=== PATIENT | male | born 1975 | race Caucasian/White ===

== ENCOUNTER → 2017-06-20 | Outpatient (CLI) | payer BC ==
[2017-06-20 11:08] LABS: ALT/SGPT 25 U/L (12-78); BLOOD UREA NITROGEN 15 mg/dl (7-18); CALCIUM 8.9 mg/dl (8.5-10.1); CARBON DIOXIDE 27 mmol/L (21-32); CHLORIDE 107 mmol/L (98-107); CHOLESTEROL 193 mg/dl (0-200); CREATININE 0.91 mg/dl (0.60-1.40); GLUCOSE 107 mg/dl (70-99); POTASSIUM 3.7 mmol/L (3.5-5.1); SODIUM 140 mmol/L (136-145); TRIGLYCERIDES 200 mg/dl (0-150); VERY LOW DENSITY LIPOPROT CALC 40 mg/dl
[2017-06-20 11:11] LABS: ALB/GLOB RATIO 1.1 (0.9-2); ALKALINE PHOSPHATASE 61 U/L (45-117); AST/SGOT 18 U/L (15-37); CHOLESTEROL/HDL RATIO 5.5; HDL CHOLESTEROL 35 mg/dl; LDL CHOLESTEROL CALCULATED 118 mg/dl
[2017-06-20 11:20] LABS: ESTIMATED AVERAGE GLUCOSE 100 mg/dl; HA1C FLAG Normal (Normal)
== END | disposition home or self-care (01) ==
LOC: C.LABBC 08:47
PROVIDERS: ATTEND Neuromusculoskeletal Medicine & OMM
DX: Z00.00 Encounter for general adult medical examination without abnormal findings (principal); E78.5 Hyperlipidemia, unspecified; R73.01 Impaired fasting glucose

== ENCOUNTER 2024-03-28 08:08 | Inpatient (IN) ==
--- NOTE | 2024-03-28 08:39 | Emergency Department Note ---
Impression & Plan Stroke ADMIT ED Provider Note HPI: History obtained from patient. The patient is a 48-year-old gentleman with history of dyslipidemia, presents the emergency department with chief complaint of acute onset dizziness, posterior headache, as well as nausea and vomiting. Patient states that his symptoms began earlier this morning at about 7 AM. Patient states his symptoms were relatively sudden in onset. Patient denies any chest pain or shortness of breath, denies any recent fever, denies any abdominal pain. On arrival here to the ED the patient does not have any focal deficits. He appears to be in some mild to moderate discomfort secondary to his nausea. Patient is otherwise alert and oriented and is able to provide me a coherent history. Patient is saturating well on room air on arrival. ROS: - Per HPI Differential Diagnosis: Peripheral vertigo, posterior circulation stroke, tension headache, migraine headache, subarachnoid hemorrhage, amongst other potential pathologies. *Outpatient medications and allergy history reviewed. PE: General: Alert HEENT: Normocephalic, trachea midline Eyes: Extraocular eye movement is intact, no scleral erythema Pulmonary: Clear to auscultation bilaterally, no wheezing Cardio: Regular rate and rhythm GI: Abdomen is soft to palpation : No suprapubic tenderness MSK: No evidence of trauma or malformation of the extremities, no edema Skin: No evidence of rash Neuro: Alert, no focal deficits, equal bilateral stewarding supervisor strength, no ataxia on [id number] testing bilaterally, symmetrical facial movements are appreciated, ambulates all 4 extremities spontaneously without issue Psychiatric: Cooperative INDEPENDENT INTERPRETATIONS: gambling monitor: (As interpreted by myself): - An order was placed for continuous cardiac monitoring - Patient was noted to be in sinus rhythm with a rate of 62 EKG: (As interpreted by myself): Rate: 60 Rhythm: Normal sinus rhythm Intervals: Within normal limits ST changes: No ST elevation Time: 0850 NIH STROKE SCALE: 1A: Level of consciousness Alert; keenly responsive 0 1B: Ask month and age Both questions right 0 1C: 'Blink eyes' & 'squeeze hands' Performs both tasks 0 2: Horizontal extraocular movements Normal 0 3: Visual grossman No visual loss 0 4: Facial palsy Normal symmetry 0 5A: Left arm motor drift No drift for 10 seconds 0 5B: Right arm motor drift No drift for 10 seconds 0 6A: Left leg motor drift No drift for 5 seconds 0 6B: Right leg motor drift No drift for 5 seconds 0 7: Limb Ataxia No ataxia 0 8: Sensation Normal; no sensory loss 0 9: Language/aphasia Normal; no aphasia 0 10: Dysarthria Normal 0 11: Extinction/inattention No abnormality 0 TOTAL NIH SCORE =0 Interventions provided in ED: -IV fluid bolus, IV Reglan, IV Benadryl, aspirin, Plavix, Lipitor Medical Decision Making: IV was established and lab work obtained, patient was placed on manager monitoring. Stroke alert was not initially activated as ischemic stroke was not considered to be the most likely diagnosis on presentation. Patient was taken for CT angiography of the head and neck that were read as unremarkable by the interpreting radiologist. Patient does not have any focal deficits on my exam. Patient was given IV Reglan and IV Benadryl as well as IV fluids for his headache. This did result in some improvement on my reevaluation following CT imaging at approximately 0940. Lab work shows a mild leukopenia at 4.71, hemoglobin is normal, platelet count is normal, CMP does not show any evidence of any critical findings. Troponin is negative. EKG per my interpretation shows normal sinus rhythm without any acute ischemic changes. On my reevaluation, patient was sleeping comfortably. I did ask the bedside nurse to ambulate the patient prior to potential discharge as there was high suspicion for possible peripheral vertigo. Patient was ambulated by the bedside RN had an episode of emesis. On my reassessment following this episode patient stated he again was feeling a sensation of dizziness and nausea. Given this, I did recommend we obtain an MRI image of the brain to rule out posterior circulation stroke and the patient was in agreement. MRI imaging of the brain was obtained and unfortunately does show evidence of small acute cerebellar infarcts. Following the results of MRI imaging I did discuss the patient's presentation with the on-call stroke neurologist at [facility], Dr. Tobias. At this time he recommends initiation of dual antiplatelet therapy as well as high-dose statin, permissive hypertension up to 200/100, and the patient can be admitted to the medicine service for secondary workup to ascertain the origin of the patient's stroke. I discussed this with the patient and his significant other at the bedside and they are in agreement to this plan. Patient remained without any focal deficits on my reassessment. His NIH stroke scale was noted to be 0. Case was then discussed with the on-call hospitalist, Dr. Leonard, and the patient was placed for admission in stable condition. Consultants/Discussions held with other healthcare providers: -Stroke Neurology, Dr. Tobias -Hospitalist, Dr. Leonard Disposition discussion held by myself with: -Patient Diagnosis: 1. Cerebellar stroke, acute 2. Nausea and vomiting, acute 3. Headache, acute, not intractable Disposition: Admission John Zhu DO Emergency Medicine Past Med/Surg History Problem List (Updated 03/28/24 @ 15:37 by John Zhu DO) Stroke (Acute) Hyperlipidemia Cerebellar stroke Leukopenia Dyslipidemia Impaired fasting glucose Medical History (Updated 03/28/24 @ 15:37 by John Zhu DO) Family history of malignant melanoma Family history of prostate cancer COVID Concussion JANUARY 2022>HIT THE HEAD WITH A DRILL>NO CURRENT PROBLEMS FROM EVENT Umbilical hernia Dermatitis Seasonal allergies Erectile dysfunction Allergic rhinitis Hx of prostatitis Acid reflux Migraine "VISUAL MIGRAINES" History of asthma A CHILD/NO INHALER Surgical History H/O umbilical hernia repair (06/10/22) Open Umbilical Hernia Repair (Not Applicable) - Jaspal Enciso DO H/O removal of cyst REMOVED FROM RIGHT SHOULDER>VERBALIZED HEALING PROBLEMS POST-OP WITH INTERNAL STITCH [place] teeth removed Family History Mother Ovarian cancer Alzheimer disease Father Prostate cancer Grandfather Prostate cancer Other Cancer No family history of adverse response to anesthesia Denies family history of Myocardial infarction Breast cancer Colorectal cancer Social History (Updated 01/28/24 @ 10:05 by Temitope Suh LPN) Smoking Status: Never smoker Second Hand Exposure: No ( A CHILD); Do You Dip or Chew Tobacco: No; Hx Alcohol Use: Yes Alcohol type: beer and hard liquor Alcohol Intake Frequency: 2-3 x/Week Hx Substance Use: No Preferred Language: Brazilian Communication Ability: Effective Visual Impairment: No Limitations Hearing Ability: Normal It Manager Required: No Beliefs That Will Affect Care: None marital status: Current Living Situation: Spouse current occupational status: employed 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 How many Children do You have: 2 Feels Safe at Home: Yes Childhood Exposure to Second-Hand Smoke: Yes Diet: regular caffeine: Yes during the past year weight has: decreased > 10 lbs Dental Care, Regularly: Yes Physical Activity Frequency: 3-4 Times per Week Seatbelt Use: always Sunscreen Use: Yes Assistive Devices: Contacts and Glasses Allergies Allergies Allergy/AdvReac Type Severity Reaction Status Date / Time INTERNAL STITCH Allergy Intermediate POOR Uncoded 01/28/24 10:00 HEALING Home Meds Home Medications Medication Instructions Recorded Confirmed hydrocortisone 2.5 % lotion 1 applic topical BID PRN . 05/08/22 03/28/24 B12 1 tab PO DAILY 03/28/24 03/28/24 cholecalciferol (vitamin D3) 1,250 50,000 unit PO WK 03/28/24 03/28/24 mcg (50,000 unit) capsule fenofibrate nanocrystallized 145 145 mg PO DAILY 03/28/24 03/28/24 mg tablet iron 1 tab PO WK 03/28/24 03/28/24 ketoconazole 2 % topical cream 1 applic topical BID PRN Other 03/28/24 03/28/24 Previous Rx's Medication Instructions Recorded ketoconazole 2 % shampoo 1 applic topical HS PRN seborrhea 06/15/23 #120 mL Results & Data (ED) Vital Signs Vital Signs - 24 hr 03/28/24 08:09 03/28/24 08:09 03/28/24 09:16 Pulse Rate 86 Pulse Rate [Apical] 75 Pulse Rhythm [Apical] Regular Pulse Strength [Apical] Normal Respiratory Rate 20 15 Respiratory Effort / Characteristics Non-Labored Spontaneous Non-Labored Respiratory Depth Normal Normal Respiratory Pattern Regular Blood Pressure 157/98 H Blood Pressure [Left Arm] 138/93 Blood Pressure Mean 117 Blood Pressure Mean [Left Arm] 108 Pulse Oximetry 98 97 Oxygen Delivery Method Room Air Room Air Room Air Sepsis Recent Fever Within 48 Hours No Sepsis New/Unexplained Change in Mental Status N/A Sepsis Action Taken by Nursing No Action Required 03/28/24 10:56 03/28/24 12:00 Pulse Rate 65 Pulse Rate [Apical] 61 Pulse Rhythm [Apical] Pulse Strength [Apical] Respiratory Rate 20 Respiratory Effort / Characteristics Respiratory Depth Respiratory Pattern Blood Pressure Blood Pressure [Left Arm] 124/92 Blood Pressure Mean Blood Pressure Mean [Left Arm] 102 Pulse Oximetry 96 Oxygen Delivery Method Room Air Sepsis Recent Fever Within 48 Hours Sepsis New/Unexplained Change in Mental Status Sepsis Action Taken by Nursing Laboratory Data 03/28/24 08:25 03/28/24 08:25 Lab Results 03/28/24 Range/Units 08:25 WBC 4.71 L (4.8-10.8) K/ul RBC 4.66 L (4.70-6.10) M/uL Hgb 14.3 (14.0-18.0) g/dl Hct 41.3 L (42.0-52.0) % MCV 88.6 (80.0-100.0) fL MCH 30.7 (25.0-34.0) pg MCHC 34.6 (32.0-36.0) g/dL RDW Std Deviation 40.8 (36.4-46.3) fL RDW Coeff of Georgina 12.5 (11.5-14.5) % Plt Count 255 (130-400) K/uL MPV 8.9 L (9.4-12.4) fL Immature Gran % (Auto) 0.4 % Neut % (Auto) 49.2 % Lymph % (Auto) 36.5 % Hamb[place] % (Auto) 10.0 % Eos % (Auto) 2.8 % Baso % (Auto) 1.1 % Neut # (Auto) 2.32 (1.40-6.50) K/uL Lymph # (Auto) 1.72 (1.20-3.40) K/uL Hamblen # (Auto) 0.47 (0.11-0.59) K/uL Eos # (Auto) 0.13 (0.00-0.50) K/uL Baso # (Auto) 0.05 (0.00-0.20) K/uL Immature Gran # (Auto) 0.02 (0.01-0.20) K/uL PT 10.9 (9.0-12.0) Seconds INR 1.0 (0.9-1.1) Sodium 140 (136-145) mmol/L Potassium 3.8 (3.5-5.1) mmol/L Chloride 106 (98-107) mmol/L Carbon Dioxide 24 (21-32) mmol/L Anion Gap 10 (3-11) BUN 14 (6-23) mg/dl Creatinine 0.90 (0.6-1.4) mg/dl Est Cr Clr Drug Dosing Not Reportable Est GFR ( Amer) 115.8 ml/min Est GFR (Non-Af Amer) 99.9 ml/min BUN/Creatinine Ratio 15.6 (10-20) Glucose 148 H (70-99(Fasting)) mg/dl Calcium 9.4 (8.6-10.3) mg/dl Total Bilirubin 0.4 (0.2-1.0) mg/dl AST 40 H (13-39) U/L ALT 31 (7-52) U/L Alkaline Phosphatase 31 L (34-104) U/L Troponin I High Sens < 2.3 (0-20) pg/ml Total Protein 7.4 (6.0-8.3) gm/dl Albumin 4.6 (3.4-5.0) gm/dl Globulin 2.8 (2.5-4.0) gm/dl Albumin/Globulin Ratio 1.6 (0.9-2) Administered Medications Discontinued Medications Aspirin (Aspirin Chew 324 Mg) 324 mg PO NOW STA Stop: 03/28/24 13:21 Last Admin: 03/28/24 14:20 Dose: 324 mg Documented By: SRL Clopidogrel Bisulfate (Clopidogrel Bisulfate 300 Mg Tab) 300 mg PO NOW STA Stop: 03/28/24 13:21 Last Admin: 03/28/24 14:20 Dose: 300 mg Documented By: SRL Diphenhydramine HCl (Diphenhydramine 50 Mg/Ml Vial) 25 mg IV NOW STA Stop: 03/28/24 08:37 Last Admin: 03/28/24 08:46 Dose: 25 mg Documented By: SRL Sodium Chloride (Nss) 1,000 mls @ 999 mls/hr IV .Q1H1M MARIA INES Stop: 03/28/24 09:45 Last Infusion: 03/28/24 09:38 Dose: Infused Documented By: Admin: 03/28/24 08:46 Dose: 999 mls/hr Documented By: SRL Ioversol (Optiray 320 125ml) 120 ml IV ONCE ONE Stop: 03/28/24 09:10 Last Admin: 03/28/24 09:09 Dose: 120 ml Documented By: KSF Metoclopramide HCl (Metoclopramide Hcl Inj 5 Mg/Ml 2 Ml Vial) 10 mg IV NOW STA Stop: 03/28/24 08:37 Last Admin: 03/28/24 08:46 Dose: 10 mg Documented By: CHERRY Ondansetron HCl (Ondansetron Inj 2 Mg/Ml 2 Ml Vial) 4 mg IV NOW STA Stop: 03/28/24 13:24 Last Admin: 03/28/24 14:20 Dose: 4 mg Documented By: SRL Imaging Data Radiologist's Impression: Neck CTA 03/28/24 08:35 NECK CTA HISTORY: dizzy, posterior headache TECHNIQUE: Multiaxial CT images of the neck were performed following the intravenous administration of contrast to evaluate the major cervical vessels. 3D/MIP images were also obtained. Sagittal and coronal reformats were reviewed. All measurements were calculated based on NASCET criteria. A dose lowering technique was utilized adhering to the principles of ALARA. COMPARISON STUDY: None. FINDINGS: The aortic arch and proximal great vessels are widely patent. There is no significant stenosis, occlusion, or dissection identified within the bilateral common carotid, internal carotid, or vertebral arteries. IMPRESSION: No significant stenosis, occlusion, or dissection identified within the carotid or vertebral arteries. ACT 112: Negative or not required by law. Electronically signed by: Blake Moreno M.D. 03/28/2024 9:34 AM Head CTA 03/28/24 08:36 CT ANGIOGRAM OF THE BRAIN COMBO CLINICAL HISTORY: Headache. COMPARISON STUDY: No priors. TECHNIQUE: Unenhanced axial CT scan of the brain is performed. Subsequently, following the IV administration of 120 cc of Optiray 320, CT angiogram of the brain was performed from the skull base to the vertex. Images are reviewed in the axial, sagittal, and coronal planes. 3-D MIPS images are created and assessed. IV contrast was administered without complication. A dose lowering technique was utilized adhering to the principles of ALARA. CT DOSE: 1220.22 mGy.cm FINDINGS: Brain parenchyma: The brain parenchyma is normal in appearance. There is no hemorrhage, mass effect, or evidence of acute territorial ischemia by CT criteria. There is no evidence of enhancing mass lesion on the angiogram phase images. No extra-axial fluid collection is seen. Noe-white matter differentiation is preserved. Ventricles, sulci, and cisterns: Normal in configuration. CT angiogram of the brain: The internal carotid arteries are widely patent, as are the anterior and middle cerebral arteries. The vertebrobasilar system and posterior cerebral arteries are widely patent. The vertebral arteries are codominant. There is no aneurysm, high-grade stenosis, or focal vessel cutoff identified throughout the intracranial circulation. Dural sinuses: Clear as visualized. Orbits: The bony orbits are intact. The orbital contents are normal as visualized. Sinuses and mastoids: The visualized paranasal sinuses are clear. The mastoid air cells are well pneumatized. Calvarium: Unremarkable. IMPRESSION: 1. No acute intracranial abnormality. 2. Unremarkable CT angiogram of the brain. ACT 112: Negative or not required by law. Electronically signed by: Roland Ortega M.D. 03/28/2024 9:22 AM Brain MRI 03/28/24 11:22 Brain MRI WITHOUT CONTRAST HISTORY: vertigo, vomiting TECHNIQUE: Multiplanar multisequence MRI of the brain was performed without the use of contrast. COMPARISON STUDY: Head CT 03/28/2024 FINDINGS: There is a 12 mm focus of restricted diffusion seen within the right side of the cerebellar vermis consistent with an acute infarct. There is a small linear focus of restricted diffusion within the left cerebellar hemisphere on image 9 also consistent with an acute lacunar infarct. The paranasal sinuses and mastoid air cells are clear. The major vascular flow-voids at the skull base are well-maintained. The ventricles and sulci are within normal limits. There is no mass, hematoma, midline shift. The orbits are unremarkable. The midline structures are intact. IMPRESSION: Small acute cerebellar infarcts as described above. ACT 112: Negative or not required by law. Electronically signed by: Blake Moreno M.D. 03/28/2024 12:59 PM Chest X-Ray 03/28/24 14:37 XR chest 1V portable CLINICAL HISTORY: Dyspnea. COMPARISON STUDY: No previous studies for comparison. FINDINGS: Lung volumes are normal. There is apparent hazy right infrahilar opacity. There is no pneumothorax or pleural effusion. Cardiac size is normal. Mediastinal contours are normal. There is no evidence for pulmonary edema. IMPRESSION: Apparent hazy right infrahilar opacity. This is likely artifactual however a focus of pneumonia could appear similar. Short-term follow-up PA and lateral chest radiographs are recommended to ensure resolution. ACT 112: Negative or not required by law. Electronically signed by: Gustavo Falcon M.D. 03/28/2024 3:25 PM Discharge Plan Visit Data Chief Complaint: Weakness Stated Complaint: WEAK, DIZZY, NAUSEA ED Provider: John Zhu Discharge Problem: Stroke Forms Stand Alone Forms: My [facility] [employer] Prescriptions Prescriptions: No Action ketoconazole 2 % shampoo 1 applic topical HS PRN (Reason: seborrhea) Qty: 120 5RF hydrocortisone 2.5 % Lotion 1 applic TOPICAL BID PRN (Reason: .) B12 1 tab PO DAILY Rx Instructions: unknown dose iron 1 tab PO WK Rx Instructions: unknown dose ketoconazole 2 % cream 1 applic topical BID PRN (Reason: Other) Rx Instructions: apply topically twice a day for 4 weeks or until response is noted fenofibrate nanocrystallized 145 mg tablet 145 mg PO DAILY Rx Instructions: TAKE 1 TABLET BY MOUTH EVERY DAY cholecalciferol (vitamin D3) 1,250 mcg (50,000 unit) capsule 50,000 unit PO WK Referrals Referrals: Erwin Portillo DO [Primary Care Provider] - Discharge Problem: Stroke Qualifiers: CVA mechanism: unspecified Qualified Code(s): I63.9 - Cerebral infarction, unspecified
[2024-03-28] MEDS: METOCLOPRAMIDE HCL INJ 5 MG/ML 2 ML VIAL IV STA (08:46)
[2024-03-28] MEDS: SODIUM CHLORIDE 0.9% 1,000 ML IV SCH (08:46)
[2024-03-28] MEDS: diphenhydrAMINE 50 MG/ML VIAL IV STA (08:46)
[2024-03-28 08:47] LABS: Basophils # (auto) 0.05 K/uL (0.00-0.20); Basophils % (auto) 1.1 %; Eosinophils # (auto) 0.13 K/uL (0.00-0.50); Eosinophils % (auto) 2.8 %; Hematocrit (blood only) 41.3 % (42.0-52.0); Hemoglobin 14.3 g/dl (14.0-18.0); Immature Granulocytes # (auto) 0.02 K/uL (0.01-0.20); Immature Granulocytes % (auto) 0.4 %; Lymphocytes # (auto) 1.72 K/uL (1.20-3.40); Lymphocytes % (auto) 36.5 %; Mean Corpuscular Hemoglobin 30.7 pg (25.0-34.0); Mean Corpuscular Hgb Conc 34.6 g/dL (32.0-36.0); Mean Corpuscular Volume 88.6 fL (80.0-100.0); Mean Platelet Volume 8.9 fL (9.4-12.4); Monocytes # (auto) 0.47 K/uL (0.11-0.59); Neutrophils # (auto) 2.32 K/uL (1.40-6.50); Neutrophils % (auto) 49.2 %; Platelet Count 255 K/uL (130-400); RDW Coefficient of Variation 12.5 % (11.5-14.5); RDW Standard Deviation 40.8 fL (36.4-46.3); Red Blood Count 4.66 M/uL (4.70-6.10); White Blood Count 4.71 K/ul (4.8-10.8)
[2024-03-28 09:05] LABS: Albumin Level 4.6 gm/dl (3.4-5.0); Anion Gap 10 (3-11); Bilirubin,Total 0.4 mg/dl (0.2-1.0); Calcium 9.4 mg/dl (8.6-10.3); Carbon Dioxide 24 mmol/L (21-32); Chloride 106 mmol/L (98-107); Potassium 3.8 mmol/L (3.5-5.1); Sodium 140 mmol/L (136-145)
[2024-03-28 09:08] LABS: Prothrombin Time 10.9 Seconds (9.0-12.0)
[2024-03-28 09:09] LABS: Troponin I High Sensitivity < 2.3 pg/ml (0-20)
[2024-03-28] MEDS: OPTIRAY 320 125ml IV ONE (09:09)
[2024-03-28 09:11] LABS: Alanine Aminotransferase 31 U/L (7-52); Albumin Globulin Ratio 1.6 (0.9-2); Alkaline Phosphatase 31 U/L (34-104); Aspartate Aminotransferase 40 U/L (13-39); BUN Creatinine Ratio 15.6 (10-20); Blood Urea Nitrogen 14 mg/dl (6-23); Est GFR (African American) 115.8 ml/min; Est GFR (Non-African American) 99.9 ml/min; Globulin 2.8 gm/dl (2.5-4.0); Glucose 148 mg/dl (70-99(Fasting)); Total Protein 7.4 gm/dl (6.0-8.3)
--- NOTE | 2024-03-28 09:24 | CT Scan Report ---
CT ANGIOGRAM OF THE BRAIN COMBO CLINICAL HISTORY: Headache. COMPARISON STUDY: No priors. TECHNIQUE: Unenhanced axial CT scan of the brain is performed. Subsequently, following the IV adminis tration of 120 cc of Optiray 320, CT angiogram of the brain was performed from the skull base to the vertex. Images are reviewed in the axial, sagittal, and coronal planes. 3-D MIPS images are created a nd assessed. IV contrast was administered without complication. A dose lowering technique was utiliz ed adhering to the principles of ALARA. CT DOSE: 1220.22 mGy.cm FINDINGS: Brain parenchyma: The brain parenchyma is normal in appearance. There is no hemorrhage, mass effect, or evidence of acute territorial ischemia by CT criteria. There is no evidence of enhancing mass lesi on on the angiogram phase images. No extra-axial fluid collection is seen. Noe-white matter differen tiation is preserved. Ventricles, sulci, and cisterns: Normal in configuration. CT angiogram of the brain: The internal carotid arteries are widely patent, as are the anterior and m iddle cerebral arteries. The vertebrobasilar system and posterior cerebral arteries are widely patent . The vertebral arteries are codominant. There is no aneurysm, high-grade stenosis, or focal vessel c utoff identified throughout the intracranial circulation. Dural sinuses: Clear as visualized. Orbits: The bony orbits are intact. The orbital contents are normal as visualized. Sinuses and mastoids: The visualized paranasal sinuses are clear. The mastoid air cells are well pneu matized. Calvarium: Unremarkable. IMPRESSION: 1. No acute intracranial abnormality. 2. Unremarkable CT angiogram of the brain. ACT 112: Negative or not required by law. Electronically signed by: Roland Ortega M.D. 03/28/2024 9:22 AM
--- NOTE | 2024-03-28 09:35 | CT Scan Report ---
NECK CTA HISTORY: dizzy, posterior headache TECHNIQUE: Multiaxial CT images of the neck were performed following the intravenous administration o f contrast to evaluate the major cervical vessels. 3D/MIP images were also obtained. Sagittal and cor onal reformats were reviewed. All measurements were calculated based on NASCET criteria. A dose low ering technique was utilized adhering to the principles of ALARA. COMPARISON STUDY: None. FINDINGS: The aortic arch and proximal great vessels are widely patent. There is no significant sten osis, occlusion, or dissection identified within the bilateral common carotid, internal carotid, or v ertebral arteries. IMPRESSION: No significant stenosis, occlusion, or dissection identified within the carotid or vertebral arteries . ACT 112: Negative or not required by law. Electronically signed by: Blake Moreno M.D. 03/28/2024 9:34 AM
--- NOTE | 2024-03-28 13:00 | Magnetic Resonance Report ---
Brain MRI WITHOUT CONTRAST HISTORY: vertigo, vomiting TECHNIQUE: Multiplanar multisequence MRI of the brain was performed without the use of contrast. COMPARISON STUDY: Head CT 03/28/2024 FINDINGS: There is a 12 mm focus of restricted diffusion seen within the right side of the cerebellar vermis consistent with an acute infarct. There is a small linear focus of restricted diffusion withi n the left cerebellar hemisphere on image 9 also consistent with an acute lacunar infarct. The parana tej sinuses and mastoid air cells are clear. The major vascular flow-voids at the skull base are well -maintained. The ventricles and sulci are within normal limits. There is no mass, hematoma, midline s hift. The orbits are unremarkable. The midline structures are intact. IMPRESSION: Small acute cerebellar infarcts as described above. ACT 112: Negative or not required by law. Electronically signed by: Blake Moreno M.D. 03/28/2024 12:59 PM
--- NOTE | 2024-03-28 14:07 | History & Physical Report ---
Date of Service March 28, 2024 Assessment & Plan (1) Cerebellar stroke: Plan: Bilateral cerebellar CVA 12 mm restricted diffusion at the right cerebellar vermis and left cerebellar lacunar infarcts CTAhead/neck without acute findings Was reviewed by [facility] telestroke. Recommended aspirin/Plavix, overnight monitoring with permissive hypertension x 24 hours. Goal parameters lowered to 200/100, patient is normotensive at bedside. Atorvastatin started. Thrombo lysis not recommended Will continue aspirin/Plavix for 3 weeks and then narrowed to aspirin versus Plavix monotherapy thereafter Echo pending Normal sinus rhythm on monitor, no evidence of A-fib Lipid/A1c pending Severe nausea related to stroke. Will continue multimodal nausea control including Zofran, Reglan, Compazine. Given lack of risk factors, young age, good blood pressure control prior to CVA hypercoagulation panel recommended. CRP, lupus anticoagulant, anticardiolipin, APC/factor V Leiden, antithrombin, B-glycoprotein, protein C/S, prothrombin, antiphospholipid markers added No history of IV drug use. Mild elevation of AST with no prior history of liver disease. Only needle exposure is via history of multiple tattoos; HCV is an independent risk factor for CVA --> Acute panel ordered Recent history of memory difficulties followed by PCP For metabolic screening showed vitamin D deficiency. B12, TSH, testosterone levels were normal; no evidence of DM A1c normal; no anemia; MCV normal. Continue outpatient follow-up. No evidence of chronic cerebral ischemia/multivessel intracranial disease to account for this CTA/MRI. (2) Impaired fasting glucose: Plan: Last A1c 5.6%, nondiabetic. Repeat pending (3) Hyperlipidemia: Plan: Previously adequately controlled on fenofibrate. Repeat lipids pending, high- dose statin ordered Plan DVT prophylaxis: SCDs, add Lovenox 03/29/2024 Diet: Heart healthy Disposition: PCU CODE STATUS: Full History of Present Illness Primary Care Provider: DO César Earlyhen is a 48-year-old male with a past medical history of impaired fasting glucose presented to the ER for sudden onset of posterior headache, dizziness, nausea, vomiting. Symptoms began abruptly at approximately 7 AM in the morning. He did not have any associated chest pain, dyspnea, ear pain, hearing loss, cough, or sinus congestion. STEMI seen at the bedside. He reports abruptly at approximately 730 he had a sudden change that is difficult to qualify in his hearing which was momentary before having the sudden onset of dizziness and nausea. Moving exacerbates his nausea and dizziness. Sometimes has a spinning quality. No weakness. No numbness or tingling. No headache. No visual change or visual aura. No similar symptoms in the past. No cough, congestion. No fevers or chills. Hx High cholesterol. On fenofibrate. Never on a statin. Denies other PMHx - BP normally good. Doesnt check at home, enver been high at dosctors visits - Father with CAD in 50s. - No history of strokes in the family - no numbness. No weakness, although felt poorly coordinated with his legs when this started - Feels slightly improved from earlier, ~50% better - No history of bleeding problems or issues - Works out, uses the [employer] few miles a few times per week with no limited chest pain/chest pressure - +sytolic murmur. Pt has no knownledge of prior murmur./ Medical History: Reviewed Medications: Reviewed Surgical History: Reviewed Family history: Reviewed Allergies: Reviewed Social History: No tobacco product. ETOH 'few days a week, 2-3 per day.' no hx withdrawal sx, can go several days without etoh and no sx. No history IVDU. Code Status: Full Allergies Allergy/AdvReac Type Severity Reaction Status Date / Time INTERNAL STITCH Allergy Intermediate POOR Uncoded 01/28/24 10:00 HEALING Home Medications Medication Instructions Recorded Confirmed Type hydrocortisone 2.5 % lotion 1 applic topical BID PRN . 05/08/22 03/28/24 History ketoconazole 2 % shampoo 1 applic topical HS PRN seborrhea 06/15/23 03/28/24 Rx #120 mL B12 1 tab PO DAILY 03/28/24 03/28/24 History cholecalciferol (vitamin D3) 1,250 50,000 unit PO WK 03/28/24 03/28/24 History mcg (50,000 unit) capsule fenofibrate nanocrystallized 145 145 mg PO DAILY 03/28/24 03/28/24 History mg tablet iron 1 tab PO WK 03/28/24 03/28/24 History ketoconazole 2 % topical cream 1 applic topical BID PRN Other 03/28/24 03/28/24 History Past Med/Surg History Problem List (Updated 03/28/24 @ 15:17 by Ashok Leonard MD) Hyperlipidemia Cerebellar stroke Leukopenia Dyslipidemia Impaired fasting glucose Medical History (Updated 03/28/24 @ 15:17 by Ashok Leonard MD) Family history of malignant melanoma Family history of prostate cancer COVID Concussion JANUARY 2022>HIT THE HEAD WITH A DRILL>NO CURRENT PROBLEMS FROM EVENT Umbilical hernia Dermatitis Seasonal allergies Erectile dysfunction Allergic rhinitis Hx of prostatitis Acid reflux Migraine "VISUAL MIGRAINES" History of asthma A CHILD/NO INHALER Surgical History H/O umbilical hernia repair (06/10/22) Open Umbilical Hernia Repair (Not Applicable) - Jaspal Enciso, H/O removal of cyst REMOVED FROM RIGHT SHOULDER>VERBALIZED HEALING PROBLEMS POST-OP WITH INTERNAL STITCH [place] teeth removed Family History Mother Ovarian cancer Alzheimer disease Father Prostate cancer Grandfather Prostate cancer Other Cancer No family history of adverse response to anesthesia Denies family history of Myocardial infarction Breast cancer Colorectal cancer Social History (Updated 01/28/24 @ 10:05 by Temitope Suh LPN) Smoking Status: Never smoker Second Hand Exposure: No ( A CHILD); Do You Dip or Chew Tobacco: No; Hx Alcohol Use: Yes Alcohol type: beer and hard liquor Alcohol Intake Frequency: 2-3 x/Week Hx Substance Use: No Preferred Language: Cymraes Communication Ability: Effective Visual Impairment: No Limitations Hearing Ability: Normal Roll On Man Required: No Beliefs That Will Affect Care: None marital status: Current Living Situation: Spouse current occupational status: employed 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 NAD. Cooperative. HEENT: Atraumatic, normocephalic. Pulm: CTAB A&P. -wheezes, -rales, -rhonchi. Symmetrical chest rise. No increased work of breathing. No respiratory distress. Cardiac: RRR, +sm. Radial pulses intact and symmetrical. Abdominal: Nontender, nondistended, soft. BS present. Multiple tattos. No history of IVDU CRANIAL NERVES: II: Pupils equal and reactive, no relative afferent pupillary defect, no VF cuts III, IV, : EOM intact, no gaze preference or deviation, no nystagmus. V: normal sensation in V1, V2, and V3 segments bilaterally VII: no asymmetry, no nasolabial fold flattening VIII: normal hearing to speech IX, X: normal palatal elevation, no uvular deviation XI: 5/5 head turn and 5/5 shoulder shrug bilaterally XII: midline tongue protrusion MOTOR: RUE: 5/5 Shoulder internal rotation, external rotation, flexion, extension, abduction, adduction 5/5 Elbow flexion/extension, wrist flexi on/extension 5/5 firer automatic stoker strength LUE: 5/5 Shoulder internal rotation, external rotation, flexion, extension, abduction, adduction 5/5 Elbow flexion/extension, wrist flexi on/extension 5/5 firer automatic stoker strength RLE: 5/5 to hip flexion knee flexion/extensio n, ankle dorsiflexion/plantarflexion LLE: 5/5 to hip flexion knee flexion/extensio n, ankle dorsiflexion/plantarflexion REFLEXES: no clonus SENSORY: Normal to touch, in upper and lower extremities without deficit or asymmetry COORD: Mild dysmetria of the LEFT hand on finger to nose with undershoot and increased tremor. RIGHT hand without evidence of dysmetria or tremor. Heel to miller normal bilaterally. Results & Data Results & Data Vital Signs (Past 12 Hours) Vital Signs Pulse Pulse Resp BP BP Pulse Ox O2 Del Method 03/28/24 12:00 61 20 124/92 96 Room Air 03/28/24 10:56 65 03/28/24 09:16 75 15 138/93 97 Room Air 03/28/24 08:09 Room Air 03/28/24 08:09 86 20 157/98 H 98 Room Air PG Care Time/CCT Total # of Minutes Spent Total Time Spent with Patient: Total time spent is greater than 50% in coordination of care (as documented) at patient's floor/unit and/or counseling patient: Coding Level of Care Code 17485 INT INP/OBS CARE 3/75MIN Diagnoses Cerebellar stroke I63.9 Impaired fasting glucose R73.01 Hyperlipidemia E78.5
[2024-03-28] MEDS: CLOPIDOGREL BISULFATE 300 MG TAB PO STA (14:20)
[2024-03-28] MEDS: ONDANSETRON INJ 2 MG/ML 2 ML VIAL IV STA (14:20)
[2024-03-28] MEDS: ASPIRIN CHEW 324 MG PO STA (14:20)
[2024-03-28] MEDS ORDERED: PROMETHAZINE HCL 25 MG/20 ML UDP PO PRN (15:21)
[2024-03-28] MEDS ORDERED: LORazepam 0.5 MG in SYRINGE 0.25 ML IV PRN (15:21)
--- NOTE | 2024-03-28 15:26 | XRay Report ---
XR chest 1V portable CLINICAL HISTORY: Dyspnea. COMPARISON STUDY: No previous studies for comparison. FINDINGS: Lung volumes are normal. There is apparent hazy right infrahilar opacity. There is no pneum othorax or pleural effusion. Cardiac size is normal. Mediastinal contours are normal. There is no radha dence for pulmonary edema. IMPRESSION: Apparent hazy right infrahilar opacity. This is likely artifactual however a focus of pn eumonia could appear similar. Short-term follow-up PA and lateral chest radiographs are recommended t o ensure resolution. ACT 112: Negative or not required by law. Electronically signed by: Gustavo Falcon M.D. 03/28/2024 3:25 PM
[2024-03-28] MEDS: ATORVASTATIN 40 MG TAB PO SCH (16:26)
--- NOTE | 2024-03-28 16:48 | Electrocardiogram Report ---
Test Reason : Blood Pressure : */* mmHG Vent. Rate : 60 BPM Atrial Rate : 60 BPM P-R Int : 190 ms QRS Dur : 100 ms QT Int : 410 ms P-R-T Axes : 51 24 43 degrees QTcB Int : 410 ms Poor data quality, interpretation may be adversely affected Normal sinus rhythm Normal ECG No previous ECGs available Confirmed by Marcelo Joseph ([id number]) on 03/28/2024 4:48:11 PM Referred By: REFERRED SELF Confirmed By: Marcelo Joseph
[2024-03-28 17:01] LABS: Hep B Surface Ag with confirm Negative (Negative)
[2024-03-28 17:06] LABS: Hep C Ab Rflx HepCQuant RNA Negative (Negative)
[2024-03-28] MEDS ORDERED: LABETALOL HCL IV 5 MG/ML 20ML IV PRN (19:10)
[2024-03-28] MEDS ORDERED: PHARMACIST DISCHARGE MED REC CONSULT PRN (19:10)
[2024-03-28] MEDS: ONDANSETRON INJ 2 MG/ML 2 ML VIAL IV PRN (22:02)
[2024-03-29 03:33] VITALS: TEMP 98.2
[2024-03-29 07:56] LABS: Basophils # (auto) 0.02 K/uL (0.00-0.20); Basophils % (auto) 0.3 %; Eosinophils # (auto) 0.03 K/uL (0.00-0.50); Eosinophils % (auto) 0.4 %; Hematocrit (blood only) 38.7 % (42.0-52.0); Hemoglobin 13.2 g/dl (14.0-18.0); Immature Granulocytes # (auto) 0.02 K/uL (0.01-0.20); Immature Granulocytes % (auto) 0.3 %; Lymphocytes # (auto) 1.29 K/uL (1.20-3.40); Lymphocytes % (auto) 18.8 %; Mean Corpuscular Hemoglobin 30.7 pg (25.0-34.0); Mean Corpuscular Hgb Conc 34.1 g/dL (32.0-36.0); Mean Platelet Volume 8.8 fL (9.4-12.4); Monocytes % (auto) 8.7 %; Neutrophils % (auto) 71.5 %; Platelet Count 218 K/uL (130-400); RDW Coefficient of Variation 12.7 % (11.5-14.5); RDW Standard Deviation 41.2 fL (36.4-46.3); White Blood Count 6.86 K/ul (4.8-10.8)
[2024-03-29 08:15] LABS: Anion Gap 5 (3-11); BUN Creatinine Ratio 11.7 (10-20); Blood Urea Nitrogen 12 mg/dl (6-23); C Reactive Protein < 0.50 mg/dl (0-0.5); Carbon Dioxide 30 mmol/L (21-32); Chloride 105 mmol/L (98-107); Chol HDL Ratio 4.4 (0-5); Cholesterol 159 mg/dl (0-200); Creatinine Clr Calc Pharmacy 106.7 ml/min; Est GFR (African American) 98.4 ml/min; Est GFR (Non-African American) 84.9 ml/min; Glucose 120 mg/dl (70-99(Fasting)); HDL Cholesterol 36 mg/dl; LDL Cholesterol Calculated 84 mg/dl; Potassium 3.6 mmol/L (3.5-5.1); Sodium 140 mmol/L (136-145); Triglycerides 194 mg/dl (0-150); VLDL Cholesterol 39 mg/dl (0-30)
[2024-03-29] MEDS: ASPIRIN 81 MG ECTAB PO SCH (08:56)
[2024-03-29] MEDS: CLOPIDOGREL BISULFATE 75 MG TAB PO SCH (08:56)
[2024-03-29] MEDS: FENOFIBRATE NANOCRYSTALLIZED 145 MG TABLET PO SCH (09:10)
[2024-03-29] MEDS ORDERED: Nursing to Pharmacy Communication SCH (09:15)
[2024-03-29 09:24] LABS: Estimated Average Glucose 114 mg/dl; Hemoglobin A1C 5.6 % (4.5-5.6)
--- NOTE | 2024-03-29 09:26 | XCELERA ---
[id number]
--- NOTE | 2024-03-29 10:11 | Pharmacy Report ---
- Date of Service March 29, 2024 - Pharmacy CVA/TIA Medication Review Medications to Prevent Stroke handout has been added to the patients discharge packet. Antiplatelet(s) * Aspirin 81 mg PO daily + clopidogrel 75 mg PO daily x 3 weeks, then monotherapy (to be determined) Cholesterol * High intensity statin: atorvastatin 80 mg daily DVT Prophylaxis * SCD knee Therapeutic Anticoagulation * No history of Afib/Aflutter noted Type 2 Diabetes * Patient does not have T2DM
[2024-03-29] MEDS: ACETAMINOPHEN 325 MG TAB PO PRN (10:43)
[2024-03-29 11:59] VITALS: BP 124/82; RESP 18; O2SAT 97
--- NOTE | 2024-03-29 14:41 | Discharge Summary ---
Date of Service March 29, 2024 Admission HPI Per Admitting Provider Kain is a 48-year-old male with a past medical history of impaired fasting glucose presented to the ER for sudden onset of posterior headache, dizziness, nausea, vomiting. Symptoms began abruptly at approximately 7 AM in the morning. He did not have any associated chest pain, dyspnea, ear pain, hearing loss, cough, or sinus congestion. seen at the bedside. He reports abruptly at approximately 730 he had a sudden change that is difficult to qualify in his hearing which was momentary before having the sudden onset of dizziness and nausea. Moving exacerbates his nausea and dizziness. Sometimes has a spinning quality. No weakness. No numbness or tingling. No headache. No visual change or visual aura. No similar symptoms in the past. No cough, congestion. No fevers or chills. Hx High cholesterol. On fenofibrate. Never on a statin. Denies other PMHx - BP normally good. Doesnt check at home, enver been high at dosctors visits - Father with CAD in 50s. - No history of strokes in the family - no numbness. No weakness, although felt poorly coordinated with his legs when this started - Feels slightly improved from earlier, ~50% better - No history of bleeding problems or issues - Works out, uses the [employer] ra few miles a few times per week with no limited chest pain/chest pressure - +sytolic murmur. Pt has no knownledge of prior murmur./ Medical History: Reviewed Medications: Reviewed Surgical History: Reviewed Family history: Reviewed Allergies: Reviewed Social History: No tobacco product. ETOH 'few days a week, 2-3 per day.' no hx withdrawal sx, can go several days without etoh and no sx. No history IVDU. Code Status: Full Discharge Data Consultations 03/28/24 13:27 ED Decision to Admit Stat Hospital Course (1) Cerebellar stroke: 48-year-old male with a past medical history of mild hyperlipidemia, and no history of hypertension/diabetes/prior stroke/tobacco use who presented with acute onset of difficulty with balance. Was initially evaluated in the ER for vertigo, due to severity of symptoms underwent an MRI which showed a 12 mm right cerebellar vermis stroke, and left cerebellar lacunar infarct. CTA of the head and neck were normal, no PICA occlusion was seen. Case was reviewed by [facility] telestroke who recommended permissive hypertension for 24 hours and dual antiplatelet for at least 3 weeks. Risk of hypertension goal parameters were lowered to 200/100; patient remains normotensive without any antihypertensives. Echo showed a PFO. This was reviewed w/ Dr. Douglas on-call neurology. It was recommended for dual antiplatelet therapy as noted, and outpatient cardiology follow-up. Referrals for cardiology and neurology were placed. On admission due to relative lack of risk factors and young age extended panel including hypercoagulable workup was sent, hepatitis panel was included due to history of multiple tattoos. No leg pain/calf pain/swelling suspicious for DVT. He has no history of IVDU. Nausea improved and nearly completely resolved with Zofran at time of discharge. Dizziness had greatly improved and was able to ambulate independently, outpatient PT was recommended on formal assessment. To Do As Outpatient: 1. Continue DAPT with aspirin Plavix for at least 3 weeks 2. Continue atorvastatin 40 mg daily 3. Follow-up hypercoagulable and hepatitis labs including lupus anticoagulant, anticardiolipin, factor V Leiden, Antithrombin, beta glycoprotein, protein C/S. If positive consider switching to full regimen to include anticoagulation 4. Follow-up with cardiology for PFO, and neurology for cerebellar strokes 5. Outpatient PT, prescription was provided Bilateral cerebellar CVA 12 mm restricted diffusion at the right cerebellar vermis and left cerebellar lacunar infarcts CTAhead/neck without acute findings Was reviewed by [facility] telestroke. Recommended aspirin/Plavix, overnight monitoring with permissive hypertension x 24 hours. Goal parameters lowered to 200/100, patient is normotensive at bedside. Atorvastatin started. Thrombolysis not recommended Will continue aspirin/Plavix for 3 weeks and then narrowed to aspirin versus Plavix monotherapy thereafter Echo pending Normal sinus rhythm on monitor, no evidence of A-fib Lipid/A1c pending Severe nausea related to stroke. This improved with Zofran Given lack of risk factors, young age, good blood pressure control prior to CVA hypercoagulation panel recommended. CRP, lupus anticoagulant, anticardiolipin, APC/factor V Leiden, antithrombin, B-glycoprotein, protein C/S, prothrombin, antiphospholipid markers added No history of IV drug use. Mild elevation of AST with no prior history of live r disease. Only needle exposure is via history of multiple tattoos; HCV is an independent risk factor for CVA --> Acute panel ordered Recent history of memory difficulties followed by PCP For metabolic screening showed vitamin D deficiency. B12, TSH, testosterone levels were normal; no evidence of DM A1c normal; no anemia; MCV normal. Continue outpatient follow-up. No evidence of chronic cerebral ischemia/multivessel intracranial disease to account for this CTA/MRI. (2) Impaired fasting glucose: Last A1c 5.6%, nondiabetic. Repeat 5.6 (3) Hyperlipidemia: Previously adequately controlled on fenofibrate. Statin added to regimen Plan Time spent day of discharge including direct patient care, review of labs and images, counseling, coordination of care approximately 70 minutes Coding Level of Care Code 59441 INP/OBS DISCH >30 MIN Diagnoses Cerebellar stroke I63.9 Impaired fasting glucose R73.01 Hyperlipidemia E78.5
[2024-03-29 14:44] VITALS: PULSE 67
[2024-03-29] MEDS: STROKE PATIENT DISCHARGE STA (15:10)
[2024-03-29] MEDS ORDERED: FENOFIBRATE NANOCRYSTALLIZED 145 MG TABLET PO SCH (21:00)
[2024-03-29] MEDS ORDERED: ATORVASTATIN 40 MG TAB PO SCH (21:00)
--- NOTE | 2024-03-31 10:04 | Pharmacy Report ---
Pharmacist Stroke Counseling - Date of Service March 31, 2024 - Scope: Pharmacy has been consulted to provide medication discharge counseling for this patient admitted with [ischemic stroke] [hemorrhagic stroke] [transient ischemic attack] as per the Pharmacist Discharge Counseling for Stroke Patients Protoc . - Medications on Discharge: Home Medications Medication Instructions Recorded Confirmed hydrocortisone 2.5 % lotion 1 applic topical BID PRN . 05/08/22 03/30/24 B12 1 tab PO DAILY 03/28/24 03/30/24 cholecalciferol (vitamin D3) 1,250 50,000 unit PO WK 03/28/24 03/30/24 mcg (50,000 unit) capsule fenofibrate nanocrystallized 145 145 mg PO DAILY 03/28/24 03/30/24 mg tablet iron 1 tab PO WK 03/28/24 03/30/24 ketoconazole 2 % topical cream 1 applic topical BID PRN Other 03/28/24 03/30/24 New Rx's Medication Instructions Recorded ketoconazole 2 % shampoo 1 applic topical HS PRN seborrhea 06/15/23 #120 mL aspirin 81 mg tablet,delayed 81 mg PO QAM 21 days #21 tabs 03/29/24 release atorvastatin 40 mg tablet 80 mg (2 x 40 mg) PO HS 30 days 03/29/24 #60 tabs clopidogrel 75 mg tablet 75 mg PO QAM 21 days #21 tabs 03/29/24 ondansetron 4 mg disintegrating 4 mg PO Q6H PRN nausea and 03/29/24 tablet vomiting 4 days #14 tabs - Action: The above medications, specifically ones for stroke treatment/prophylaxis, have been reviewed in detail with the patient and/or patient used equipment sales representative(s) prior to discharge. This includes indication, common adverse reactions, drug interactions, and medication administration. Medication counseling has been employed using the teach-back method to ensure understanding. - Outcome: The patient and/or patient used equipment sales representative(s) have demonstrated understanding of the medications. Additional comments: Spoke with Kain and his regarding his medications changes this AM. Reviewed uses of new medications (aspirin, clopidogrel,and atorvastatin), side effects, and when to seek further care. He asked about Zofran and feeling off, responded that Zofran works on the brain to reduce feelings of nausea and can make you feel tired or "off". Also asked about taking Zofran all the time, stated that it would be fine to take while recovering as long as he did not need to work or drive, but to follow-up with his primary care doctor if needed to continue using. He inquired about when to take the new medications, responded no specific time is best, but when was easiest for him to remember. All questions answered. Thank you for allowing pharmacy to be involved in the care of this patient. Please call [phone] with any additional questions
[2024-03-31 14:53] LABS: Hepatitis A Antibody IgM NON-REACTIVE (NON-REACTIVE); Hepatitis B Core Antibody IgM NON-REACTIVE (NON-REACTIVE)
== END 2024-03-29 15:30 | disposition home or self-care (01) | DRG 66 ==
LOC: ED 08:08 → EDINP 17:08 → 2S 21:20